=== PATIENT | female | born 1995 | race Caucasian/White ===

== ENCOUNTER → 2024-07-12 07:18 | Outpatient (CLI) | payer OTHER, SELFPAY ==
--- NOTE | 2024-07-12 07:21 | DI.MRI.S_ITS ---
PROCEDURE: MR ANKLE RT WO CON INDICATIONS: instability TECHNIQUE: Noncontrast sagittal T1 spin echo and T2 fast spin echo with fat saturation, axial proton density fast spin echo and T2 fast spin echo with fat saturation, coronal T1 spin echo and T2 fast spin echo with fat saturation through the ankle/hindfoot. COMPARISON: None. FINDINGS: Image quality: Excellent Tendons: Mild tenosynovitis of the posterior tibialis, flexor digitorum longus, and the flexor hallucis longus. The extensor tendons are unremarkable. Longitudinal split tear of the peroneal brevis (03:25), below the lateral malleolus. The peroneal longus is unremarkable. Mild tendinosis of the distal Achilles tendon, with mild peritenonitis. No tear of the distal Achilles tendon. There is a 4 mm ganglion cyst about the medial insertion of the distal Achilles tendon. Ligaments: The anterior and posterior tibiofibular ligaments are intact. The anterior talofibular ligament is mildly redundant with partial thickness tear at the fibular insertion. The posterior talofibular ligament is intact. Thickening of the calcaneofibular ligament, representing prior sprain. The deep portion of the deltoid ligament is intact. Sinus tarsi: No fibrosis Plantar fascia: Unremarkable Muscles: Normal in signal Bones: Small bone island in the medial tibial plafond. No marrow edema. No acute fracture. Small tibiotalar effusion. IMPRESSION: 1. Mild tenosynovitis of the flexor tendons. 2. Longitudinal split tear of the peroneal brevis. 3. Mild tendinosis of the distal Achilles tendon with mild peritenonitis and 4 mm ganglion cyst. 4. Partial-thickness tear of the anterior talofibular ligament. Prior sprain of the calcaneofibular ligament. Dictated by: Sharron Mahmood M.D. on 07/14/2024 at 10:12 Approved by: Sharron Mahmood M.D. on 07/14/2024 at 10:21
== END ==
PROVIDERS: Referring Provider Podiatrist; Visit Provider Podiatrist
DX: S96.811A Strain of other specified muscles and tendons at ankle and foot level, right foot, initial encounter (principal); S93.411A Sprain of calcaneofibular ligament of right ankle, initial encounter; S93.491A Sprain of other ligament of right ankle, initial encounter; M76.61 Achilles tendinitis, right leg; M67.471 Ganglion, right ankle and foot; M65.971 Unspecified synovitis and tenosynovitis, right ankle and foot; M25.371 Other instability, right ankle; R26.2 Difficulty in walking, not elsewhere classified
CPT/HCPCS: 73721